=== PATIENT | male | born 1940 | race Caucasian/White ===

== ENCOUNTER → 2016-10-28 | Outpatient (CLI) | payer MEDICARE, OTHER ==
[2016-10-20 09:37] VITALS: BP 153/73
[2016-10-28 12:05] LABS: HEMATOCRIT 28.3 % (39.0-53.0); HEMOGLOBIN 9.6 g/dL (13.0-17.5)
[2016-10-28 12:19] LABS: ALBUMIN 3.3 g/dL (3.4-5.0); CALCIUM 8.5 mg/dL (8.5-10.1); CREATININE 4.7 mg/dL (0.7-1.3); GFR 12.1; PHOSPHORUS 5.1 mg/dL (2.6-4.7); POTASSIUM 4.8 mmol/L (3.5-5.1)
[2016-10-29 17:34] LABS: MICRO CREAT RATIO 102.7 mg/g creat (0.0-30.0)
== END | disposition home or self-care (01) ==
LOC: LAB 11:37
PROVIDERS: ATTEND Internal Medicine Nephrology
DX: I12.9 Hypertensive chronic kidney disease with stage 1 through stage 4 chronic kidney disease, or unspecified chronic kidney disease (principal); N18.4 Chronic kidney disease, stage 4 (severe); E11.22 Type 2 diabetes mellitus with diabetic chronic kidney disease; E11.21 Type 2 diabetes mellitus with diabetic nephropathy; E21.1 Secondary hyperparathyroidism, not elsewhere classified; D63.1 Anemia in chronic kidney disease; I71.4 Abdominal aortic aneurysm, without rupture; R53.83 Other fatigue; Z68.25 Body mass index [BMI] 25.0-25.9, adult
CPT/HCPCS: 36415; 80069; 82043; 82306; 82570; 82728; 83540; 83550; 85014; 85018; 86704; 87340

== ENCOUNTER 2020-10-06 04:23 | Emergency (ER) | payer MEDICARE, OTHER ==
[~2020-10-06] VITALS: Ht 180.3 cm; Wt 75.0 kg
--- NOTE | 2020-10-06 04:31 | PHYS DOC ---
Past History Past Medical History: Anemia, Angina, Arthritis, Arrhythmia, Bronchitis, CAD, CHF, COPD, Diabetes, Heart Disease, Hypertension, Renal Failure, Vascular Disease Past Surgical History: Angioplasty, Other Past Surgical History Transarterial abdomen aortic stenting of aneurysm- Lt arm AV graph Smoking: Cigarettes General Adult HPI: HPI: ".. I supposed to be in dialysis this morning... I did not think you can make it and I got this chest pain... So I came here..".." Actually the pain started at mid night.. but I tried to go back to sleep.. It was 10/10..but it calmed down now.. it about 10.. 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 Pain let up a little bit last night so he then went back to bed. However on the way to dialysis his pain came back and rated 10 out of 10. Patient locates pain in central left chest. Nothing he did seem to make it better. There did seem to be a pleuritic component. Patient states he been compliant with his medications. Patient does still smoke. Patient has somewhat extensive medical history with diabetes, hypertension, COPD, anemia of chronic disease, arthritis, MIs, four coronary artery stents, and end-stage renal disease the past 3 years with dialysis on Wednesdays and Saturdays. Patient states he developed renal failure after treatment of abdomen aortic aneurysm at approximately 3 years ago. Patient aortic aneurysm was treated by arterial placement of aortic stent. Patient states dye used to aid in placement of the aortic stent and his diabetes caused renal failure. Patient is occasionally O2 dependent due to fluid overload and intermittent episodes of bronchitis. Patient still follows locally with Dr. Epps. Has follow-up with Dr. Hdz nephrology in the past, but now currently following with Dr. Qureshi. Patient completed his last Covid vaccination-Moderna on July 15,. No recent travel. No significant ill contacts. No history of recent trauma. No history of immunosuppression. Review of Systems: Review of Systems: Constitutional: Denies fever or chills Eyes: Denies change in visual acuity HENT: Denies nasal congestion or sore throat Respiratory: Complains of cough and shortness of breath Cardiovascular: Complains of chest pain GI: Denies abdominal pain, nausea, vomiting, bloody stools or diarrhea : Denies dysuria Musculoskeletal: Denies back pain or joint pain Integument: Denies rash Neurologic: Denies headache, focal weakness or sensory changes Endocrine: Denies polyuria or polydipsia Lymphatic: Denies swollen glands Psychiatric: Denies depression or anxiety Family History: Family History: Noncontributory to presentation Current Medications: Current Meds: See nursing for home meds Allergies: Allergies: Allergies Coded Allergies Type Severity Reaction Last Updated Verified No Known Drug Allergies 12/24/14 No Physical Exam: PE: Constitutional: in acute distress, chronically ill in appearance. [] HENT: Normocephalic, atraumatic, bilateral external ears normal, oropharynx moist, no oral exudates, nose normal. [] Eyes: PERRLA, EOMI, conjunctiva normal, no discharge. [] Neck: Normal range of motion, no tenderness, supple, no stridor. [] Cardiovascular: Irregular heart rate and irregular regular rhythm, PMI to left, monitor shows a sinus rhythm with frequent atrial premature complexes and a bundle branch block. With occasional PVCs. Lungs & Thorax: Bilateral breath sounds equal at apex with scattered wheezes and bibasilar crackles on auscultation [] Abdomen: Bowel sounds normal, soft, no tenderness, no masses, no pulsatile masses. Old surgical scar Skin: Warm, dry, no erythema, no rash. Poor turgor Back: No tenderness, no CVA tenderness. [] Mild kyphosis Extremities: No tenderness, no cyanosis, no clubbing, ROM intact, no edema. Arthritic changes. Left AC-AV graft has good thrill Neurologic: Alert and oriented X 3, moves extremities on request, has distal sensory,, no new focal deficits noted per patient and Psychologic: Affect anxious , judgement normal, mood normal. At times argumentative. EKG: EKG: My interpretation EKG shows a sinus rhythm 75 with atrial premature complexes, left axis deviation, bundle branch block, 0431 Hrs. Radiology/Procedures: Radiology/Procedures: [][address] [address] IMAGING REPORT Signed PATIENT: RONNIE BRIGGS AACCOUNT: [id number] : 1940 LOCATION: ER AGE: 80 SEX: M EXAM STATUS: REG ER ORD. PHYSICIAN: LUKE DUBOSE MD REASON: dyspnea PROCEDURE: PORTABLE CHEST 1V EXAMINATION: XR CHEST 1V CLINICAL HISTORY: Dyspnea EXAM DATE/TIME: 10/06/2020 4:43 AM COMPARISON: None FINDINGS: Lines, Tubes, and Devices: None. Cardiomediastinal Silhouette: Normal heart size. Aortic atherosclerotic calcification. Lungs and Pleura: Questionable subtle patchy groundglass opacities in the bilateral lungs. No evidence of pleural effusion, however, the bilateral costophrenic angles are excluded from the image. No pneumothorax. Bones and Soft Tissues: Degenerative changes of the thoracic spine. IMPRESSION: No evidence of acute cardiopulmonary abnormality. Electronically signed by: Sidney Shipley DO (10/06/2020 6:07 AM) [facility] DICTATED AND SIGNED BY: SIDNEY SHIPLEY DO DATE: 10/06/20 06 CC: LUKE DUBOSE MD; SATURNINO EPPS MD ~MTH0 0 Heart Score: C/O Chest Pain: Yes HEART Score for Chest Pain: HEART Score for Chest Pain Response (Comments) Value History Moderately Suspicious 1 ECG Nonspecific Repolarizatio 1 Age > 65 2 Risk Factors 1 or 2 Risk Factors 1 Troponin < Normal Limit 0 Total 5 Risk Factors: Risk Factors: DM, Current or recent (<one month) smoker, HTN, HLP, family history of CAD, obesity. Risk Scores: Score 0 - 3: 2.5% MACE over next 6 weeks - Discharge Home Score 4 - 6: 20.3% MACE over next 6 weeks - Admit for Clinical Observation Score 7 - 10: 72.7% MACE over next 6 weeks - Early Invasive Strategies Course & Med Decision Making: Course & Med Decision Making Pertinent Labs and Imaging studies reviewed. (See chart for details) Discussed presentation, testing and tx plan with Dr Ansari-will accept pt at [facility]- for Nephrology and Cardiology consult.s Pt. pain gradually improved with small increments of morphine. Impression: 1. Chest pain 2. Dyspnea-pulmonary edema-fluid overload 3. COPD/emphysema 4. Coronary artery disease-MIs status post 4 coronary artery stents 5. End-stage renal ychmpig-[id number]-ih Tuesdays and Saturdays x3 yrs 6. Diabetes glu 139 7. Anemia of chronic disease hemoglobin 11.4 with macrocytic indices 104 8. Bronchitis 9. Hyperkalemia 5.2-critical 10. Leukocytosis 11.6 11. Degenerative joint disease/arthritis 12. History of transverse arterial abdomen aortic repair by stenting-[facility] approximately 3 years ago 14. Malnutrition [] Dragon Disclaimer: Dragon Disclaimer: This electronic medical record was generated, in whole or in part, using a voice recognition dictation system. Departure Departure: Referrals: SATURNINO EPPS MD (PCP) Anaih Disclaimer This chart was dictated in whole or in part using Voice Recognition software in a busy, high-work load, and often noisy Emergency Department environment. It may contain unintended and wholly unrecognized errors or omissions. Dragon Disclaimer This chart was dictated in whole or in part using Voice Recognition software in a busy, high-work load, and often noisy Emergency Department environment. It may contain unintended and wholly unrecognized errors or omissions. LUKE DUBOSE MD Oct 06, 2020 04:31
[2020-10-06] MEDS ORDERED: ANTI-COAG MONITOR BY PHARMACY. MC PRN (04:45)
[2020-10-06] MEDS ORDERED: HEPARIN 25,000UTS/250ML PREMIX 250 ML IV PRN (04:45)
--- NOTE | 2020-10-06 04:45 | EKG ---
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
[2020-10-06] MEDS ORDERED: ASPIRIN 325 MG TABLET PO ONE (05:00)
[2020-10-06] MEDS ORDERED: HEPARIN for IV BOLUS 10,000 UNIT/10 ML VIAL. IV ONE (05:00)
[2020-10-06] MEDS ORDERED: MORPHINE SULFATE 2 MG/ML DISP.SYRIN. IV ONE (05:00)
[2020-10-06 05:20] LABS: HEMOGLOBIN ISTAT 11.9 gm/dL; POTASSIUM ISTAT 5.2 mmol/L (3.5-5.0)
[2020-10-06 05:21] LABS: BASO # 0.1 x10^3/uL (0.0-0.2); BASO % 1 % (0-3); EOS # 0.2 x10^3/uL (0.0-0.7); EOS % 2 % (0-3); HEMATOCRIT 34.1 % (39.0-53.0); HEMOGLOBIN 11.4 g/dL (13.0-17.5); LYMPH # 1.6 x10^3/uL (1.0-4.8); LYMPH % 14 % (24-48); MEAN CORPUSCULAR HEMOGLOBIN 35 pg (25-35); MEAN CORPUSCULAR HGB CONC 33 g/dL (31-37); MEAN CORPUSCULAR VOLUME 104 fL (79-100); MONO # 1.4 x10^3/uL (0.0-1.1); MONO % 13 % (0-9); NEUT # 8.2 x10^3uL (1.8-7.7); NEUT % 71 % (31-73); PLATELET COUNT 140 x10^3/uL (140-400); RED BLOOD COUNT 3.28 x10^6/uL (4.30-5.70); RED CELL DISTRIBUTION WIDTH 14.5 % (11.5-14.5); WHITE BLOOD COUNT 11.6 x10^3/uL (4.0-11.0)
[2020-10-06] MEDS ORDERED: CIPROFLOXACIN HCL 500 MG TABLET PO ONE (06:00)
--- NOTE | 2020-10-06 06:10 | RAD ---
EXAMINATION: XR CHEST 1V CLINICAL HISTORY: Dyspnea EXAM DATE/TIME: 10/06/2020 4:43 AM COMPARISON: None FINDINGS: Lines, Tubes, and Devices: None. Cardiomediastinal Silhouette: Normal heart size. Aortic atherosclerotic calcification. Lungs and Pleura: Questionable subtle patchy groundglass opacities in the bilateral lungs. No evidenc e of pleural effusion, however, the bilateral costophrenic angles are excluded from the image. No pne umothorax. Bones and Soft Tissues: Degenerative changes of the thoracic spine. IMPRESSION: No evidence of acute cardiopulmonary abnormality. Electronically signed by: Sidney Sifuentes DO (10/06/2020 6:07 AM) BULL
[2020-10-06] MEDS ORDERED: NITROGLYCERIN OINT 1 GM PACKET. TP ONE (06:15)
[2020-10-06 06:58] VITALS: BP 94/56
[2020-10-06 10:00] LABS: ALBUMIN 3.5 g/dL (3.4-5.0); TOTAL BILIRUBIN 0.3 mg/dL (0.2-1.0); TOTAL PROTEIN 7.1 g/dL (6.4-8.2)
[2020-10-06 10:01] LABS: DIRECT BILIRUBIN 0.1 mg/dL (0.0-0.2); MAGNESIUM 2.5 mg/dL (1.8-2.4)
[2020-10-06 16:54] LABS: THYROID STIM HORMONE (TSH) 0.592 uIU/mL (0.358-3.740)
== END 2020-10-06 07:30 | disposition short-term general hospital (02) ==
LOC: ER 04:23
DX: R07.89 Other chest pain (principal); I13.2 Hypertensive heart and chronic kidney disease with heart failure and with stage 5 chronic kidney disease, or end stage renal disease; E11.22 Type 2 diabetes mellitus with diabetic chronic kidney disease; N18.6 End stage renal disease; I50.1 Left ventricular failure, unspecified; I25.10 Atherosclerotic heart disease of native coronary artery without angina pectoris; D63.1 Anemia in chronic kidney disease; J44.9 Chronic obstructive pulmonary disease, unspecified; E87.5 Hyperkalemia; D72.829 Elevated white blood cell count, unspecified; M19.90 Unspecified osteoarthritis, unspecified site; E46 Unspecified protein-calorie malnutrition; F17.210 Nicotine dependence, cigarettes, uncomplicated; Z99.2 Dependence on renal dialysis; Z68.23 Body mass index [BMI] 23.0-23.9, adult; Z86.2 Personal history of diseases of the blood and blood-forming organs and certain disorders involving the immune mechanism
CPT/HCPCS: 36415; 71045; 80047; 80061; 80076; 82550; 83690; 83735; 83880; 84443; 84484; 85025; 93005; 96374; 96375; 99285; J1644; J2270

== ENCOUNTER 2021-02-28 19:32 | Emergency (ER) | payer MEDICARE, OTHER ==
[~2021-02-28] VITALS: Ht 177.8 cm; Wt 71.0 kg
[2021-02-28 19:40] VITALS: BP 131/61
[2021-02-28] MEDS ORDERED: ACETAMINOPHEN 500 MG TABLET PO ONE (19:45)
--- NOTE | 2021-02-28 19:53 | PHYS DOC ---
Past History Past Medical History: Anemia, Angina, Arthritis, Arrhythmia, Bronchitis, CAD, CHF, COPD, Diabetes, Heart Disease, Hypertension, Renal Failure, Vascular Disease Past Surgical History: Angioplasty, Other Additional Past Surgical Histo: bladder surgery, skin ca,cardiac stents Smoking: Cigarettes Alcohol Use: None Adult General Chief Complaint Chief Complaint: MECHANICAL FALL HPI HPI Patient is an 81-year-old male, with a past medical history significant for CAD, A. fib on Eliquis who presents with family for chief complaint of fall. States he was outside about an hour before coming in to the emergency department, tripped and fell on his back. States he was unable to get up on his own as he usually walks with a cane. Denies any loss of consciousness, changes in vision, headache, chest pain, shortness of breath, abdominal pain, nausea, vomiting. Denies any new numbness/weakness/tingling. States he is at baseline per sitting, standing and walking. Complaining about pain in the left hand and forearm, 5 out of 10 with no radiation, and right hip and leg 5 out of 10 with no radiation. Review of Systems Review of Systems Review of systems otherwise unremarkable except noted in HPI Allergies Allergies Allergies Coded Allergies Type Severity Reaction Last Updated Verified No Known Drug Allergies 10/06/20 No Physical Exam Physical Exam Constitutional: Well developed, well nourished, no acute distress, non-toxic appearance. [] HENT: Normocephalic, atraumatic, bilateral external ears normal, oropharynx moist, no oral exudates, nose normal. [] Eyes: conjunctiva normal, no discharge. [] Neck: Normal range of motion, no tenderness, supple, no stridor. [] Cardiovascular:Heart rate regular rhythm, no murmur [] Lungs & Thorax: Bilateral breath sounds clear to auscultation [] Abdomen: soft, no tenderness, no masses, no pulsatile masses. [] Skin: Warm, dry, no erythema, no rash. [] Back: No tenderness, no CVA tenderness. [] Extremities: Mild tenderness on the posterior aspect of the left hand in between the second and third finger PIP, third and fourth fingers with some slight deviation to the ulnar aspect, neurovascular exam intact. Mild tenderness on palpation of the right hip and femur with no obvious deformities, neurovascular exam intact Neurologic: Alert and oriented X 3, normal motor function, normal sensory function, cranial nerves intact, baseline sitting, standing or walking, no focal deficits noted. [] Psychologic: Affect normal, judgement normal, mood normal. [] EKG EKG [] Radiology/Procedures Radiology/Procedures [] Heart Score C/O Chest Pain: No Risk Factors: Risk Factors: DM, Current or recent (<one month) smoker, HTN, HLP, family history of CAD, obesity. Risk Scores: Risk Factors: DM, Current or recent (<one month) smoker, HTN, HLP, family history of CAD, obesity. Course & Med Decision Making Course & Med Decision Making Patient is an 81-year-old male on [email or web address] who presents after a fall at home Vital signs not concerning. Physical exam noted above. Patient given pain medicine and ice pack All imaging unremarkable outside of the left hand which has an obliquely oriented fracture to the third and fourth metacarpal mildly displaced Nerve block performed with 1% lidocaine, injecting 3 mils in between third and fourth metacarpal. Patient tolerated well. Reduced. A radial gutter and ulnar gutter splint placed. Discussed all findings with family. Gave symptom management recommendations for home. Advised to keep the splint on until cleared by orthopedic surgery. Given contact information for [facility] orthopedic group. Advised to call both primary care physician and orthopedic surgeons first thing in the morning to set up an immediate follow-up visit for reevaluation and discussions of further evaluation and treatment. Gave return precautions to the ED. Patient grateful, verbalized understanding and agreed with plan of discharge. Dragon Disclaimer Dragon Disclaimer This electronic medical record was generated, in whole or in part, using a voice recognition dictation system. Departure Departure: Impression: Primary Impression: Metacarpal bone fracture Disposition: 01 HOME / SELF CARE / HOMELESS Condition: IMPROVED Referrals: SATURNINO EPPS MD (PCP) Patient Instructions: Hand Fracture, Metacarpals Additional Instructions: Thank you for coming into the emergency department tonight and allowing us to take care of you. Please read the attached information carefully to go back over some of the things we discussed. Please use your pain medication as prescribed and when needed. Please use ice as well. Please be sure to leave your splint on until you are seen and cleared by the orthopedic surgeons. Please call your primary care physician first thing in the morning to update on your ED visit and set up a follow-up as soon as possible. Please call the [facility] orthopedic group first thing in the morning at [phone] to update on your visit and set up a follow-up appointment as soon as possible for reevaluation and discussions on further evaluation and treatment. Scripts Hydrocodone Bit/Acetaminophen (HYDROCODONE-APAP 5-325 ) 1 Each Tablet 1 TAB PO TID PRN for fracture for 3 Days, #9 TAB 0 Refills Prov: CATHY STILL MD 02/28/21 CATHY STILL MD Feb 28, 2021 19:53
--- NOTE | 2021-02-28 21:04 | RAD ---
Exam: Pelvis with bilateral hips INDICATION: Fall TECHNIQUE: Frontal view of the pelvis with frontal and frog-leg lateral views of the right and left h ip Comparisons: None FINDINGS: Diffuse osteopenia. Moderate osteoarthritic change at the hip joints bilaterally. No acute fracture. Joint spaces are well-maintained. IMPRESSION: Diffuse osteopenia without underlying osseous abnormality identified. If the patient is acutely unabl e to bear weight recommend cross-sectional imaging to evaluate for occult fracture. Electronically signed by: Ashwin Ellison MD (02/28/2021 9:01 PM) DOMINIC
--- NOTE | 2021-02-28 21:05 | RAD ---
Exam: Left hand 2 views INDICATION: Fall TECHNIQUE: Frontal and lateral views of the left hand Comparisons: None FINDINGS: There is no obliquely oriented fracture through the third and fourth metacarpals which are mildly dis placed. Diffuse osteopenia. Soft tissue unremarkable. Joint spaces are well-maintained. IMPRESSION: Obliquely oriented fracture to the third and fourth metacarpals, mildly displaced. Electronically signed by: Ashwin Ellison MD (02/28/2021 9:02 PM) DOMINIC
--- NOTE | 2021-02-28 21:05 | RAD ---
Exam: Left forearm 2 views INDICATION: Fall TECHNIQUE: Frontal and lateral views left forearm Comparisons: None FINDINGS: Bone mineralization is normal. No acute or healed fractures. Soft tissues are unremarkable. Joint spa brayden are well-maintained. IMPRESSION: No acute osseous abnormality Electronically signed by: Ashwin Ellison MD (02/28/2021 9:02 PM) DOMIINC
--- NOTE | 2021-02-28 21:06 | RAD ---
Exam: Right femur 2 views INDICATION: Fall TECHNIQUE: Frontal and lateral views of the right femur Comparisons: None FINDINGS: Diffuse osteopenia. No acute or healed fractures. Joint spaces are well-maintained. Soft tissues are unremarkable. IMPRESSION: No acute osseous abnormality identified. Electronically signed by: Ashwin Ellison MD (02/28/2021 9:03 PM) DOMINIC
--- NOTE | 2021-02-28 21:14 | RAD ---
CT head without contrast: Reason for examination: Fell. On Eliquis. Helical images were obtained through the brain with no contrast administered. Ventricular systems are symmetric and not dilated considering the patient's advanced age and generali zed cerebral atrophy. No midline shift is seen. There is no evidence of intracranial hemorrhage, acut e infarct, mass or edema. There is some mucosal disease in the maxillary antra bilaterally. Mastoid a ir cells are clear. No acute skull abnormality is seen. IMPRESSION: Cerebral atrophy but no acute intracranial abnormality evident. CT cervical spine without contrast: Helical images were obtained through the cervical spine from the skull base through the thoracic apic es with no contrast administered. Reconstruction was performed in sagittal and coronal planes. The C1 ring appears to be intact. The odontoid process is intact and normally centered between the la teral masses of C1. The cervical vertebral bodies are normally aligned anteriorly and posteriorly. No acute fracture or subluxation is seen. Posterior elements are intact. There are some degenerative ch anges in the cervical spine and there is moderate degenerative disc disease at the C6-7 disc level. T he remaining intervertebral discs are fairly well-maintained. There is not appear to be significant s kimberly stenosis evident. Prevertebral soft tissues are normal. IMPRESSION: No acute abnormality evident in the cervical spine. Exposure: One or more of the following individualized dose reduction techniques were utilized for thi s examination: 1. Automated exposure control 2. Adjustment of the mA and/or kV according to patient size 3. Use of iterative reconstruction technique. Electronically signed by: Hyacinth Diaz MD (02/28/2021 9:12 PM) JOSE
[2021-02-28] MEDS ORDERED: HYDR-2155 PO (21:23)
[2021-02-28] MEDS ORDERED: oxyCODONE/APAP 5/325 1 TAB TABLET PO ONE (21:30)
[2021-02-28] MEDS ORDERED: LIDOCAINE 1% PF 30 ML VIAL. INJ ONE (21:30)
== END 2021-02-28 22:10 | disposition home or self-care (01) ==
LOC: ER 19:32
DX: S62.303A Unspecified fracture of third metacarpal bone, left hand, initial encounter for closed fracture (principal); S62.305A Unspecified fracture of fourth metacarpal bone, left hand, initial encounter for closed fracture; M19.90 Unspecified osteoarthritis, unspecified site; I25.10 Atherosclerotic heart disease of native coronary artery without angina pectoris; I13.0 Hypertensive heart and chronic kidney disease with heart failure and stage 1 through stage 4 chronic kidney disease, or unspecified chronic kidney disease; E11.22 Type 2 diabetes mellitus with diabetic chronic kidney disease; N18.9 Chronic kidney disease, unspecified; I50.9 Heart failure, unspecified; F17.210 Nicotine dependence, cigarettes, uncomplicated; I48.91 Unspecified atrial fibrillation; J44.9 Chronic obstructive pulmonary disease, unspecified; W01.0XXA Fall on same level from slipping, tripping and stumbling without subsequent striking against object, initial encounter; Y93.89 Activity, other specified; Y92.89 Other specified places as the place of occurrence of the external cause; Y99.8 Other external cause status
CPT/HCPCS: 26605; 70450; 72125; 73090; 73120; 73521; 73552; 96374; 96376; 99284; J3010

== ENCOUNTER → 2021-04-12 | Outpatient (CLI) | payer MEDICARE, OTHER ==
[~2021-04-12] MED LIST: HYDR-2155 PO
--- NOTE | 2021-04-12 17:30 | RAD ---
EXAM: LEFT HAND 3 VIEWS. HISTORY: Fracture fixation follow-up. COMPARISON: 02/28/2021. FINDINGS: Fractures of the third and fourth metacarpals remain in near-anatomic alignment. The third metacarpal fracture is fixed by 2 screws in the fourth fixed by 2 pins. No solid bridging callus is y et detectable. Osteopenia is severe. A nondisplaced fracture suspected along the distal pole of the scaphoid on the frontal projection. First metacarpophalangeal and diffuse distal interphalangeal osteoarthritis are mild. Atherosclerotic calcifications are noted. IMPRESSION: 1. Suspect a nondisplaced fracture of the distal pole of the scaphoid. A wrist examination could furt her evaluate if the diagnosis remains unclear. 2. Third and fourth metacarpal fractures status post internal fixation in expected alignment. Electronically signed by: Kiarra Borges MD (04/12/2021 5:28 PM) [id number]
== END ==
LOC: RAD 13:45
PROVIDERS: ATTEND Physician Assistant
DX: M19.042 Primary osteoarthritis, left hand (principal); M85.88 Other specified disorders of bone density and structure, other site; I70.90 Unspecified atherosclerosis; Z98.890 Other specified postprocedural states
CPT/HCPCS: 73130

== ENCOUNTER 2021-04-28 14:25 | Emergency (ER) | payer MEDICARE, OTHER ==
[~2021-04-28] VITALS: Ht 180.3 cm; Wt 69.0 kg
--- NOTE | 2021-04-28 16:02 | RAD ---
EXAM: Chest, single view. HISTORY: Hypoxia. Covid 19. COMPARISON: 10/06/2020 FINDINGS: A frontal view of the chest is obtained. There is partially consolidated right upper and le ft lower lobe infiltrate superimposed on multifocal interstitial infiltrate and suspected chronic int erstitial changes. There is no pleural effusion or pneumothorax. The heart is normal in size. IMPRESSION: Multifocal partially consolidated interstitial infiltrate. Follow-up to confirm resolutio n. Electronically signed by: La Nena Malin MD (04/28/2021 4:00 PM) [id number]
[2021-04-28] MEDS ORDERED: IV NORMAL SALINE 50ML 50 ML ONE (16:58)
[2021-04-28] MEDS ORDERED: IV NORMAL SALINE 250ML 250 ML ONE (16:58)
[2021-04-28] MEDS ORDERED: AZITHROMYCIN 500 MG VIAL. IV ONE (16:58)
[2021-04-28] MEDS ORDERED: cefTRIAXone SODIUM 1 GM VIAL ONE (16:58)
[2021-04-28 17:07] VITALS: BP 108/45
[2021-04-28] MEDS ORDERED: AZITHROMYCIN 500 MG in IV NORMAL SALINE 250ML 250 ML IV ONE (17:15)
[2021-04-28 17:18] LABS: BASO % 0 % (0-3); EOS % 0 % (0-3); HEMATOCRIT 33.4 % (39.0-53.0); HEMOGLOBIN 10.8 g/dL (13.0-17.5); LYMPH # 0.9 x10^3/uL (1.0-4.8); LYMPH % 18 % (24-48); MEAN CORPUSCULAR HEMOGLOBIN 34 pg (25-35); MEAN CORPUSCULAR HGB CONC 32 g/dL (31-37); MEAN CORPUSCULAR VOLUME 105 fL (79-100); MONO % 19 % (0-9); NEUT # 3.1 x10^3uL (1.8-7.7); NEUT % 62 % (31-73); PLATELET COUNT 94 x10^3/uL (140-400); RED BLOOD COUNT 3.17 x10^6/uL (4.30-5.70); RED CELL DISTRIBUTION WIDTH 14.9 % (11.5-14.5); WHITE BLOOD COUNT 4.9 x10^3/uL (4.0-11.0)
--- NOTE | 2021-04-28 17:20 | EKG ---
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
[2021-04-28 17:30] LABS: CALCIUM 8.6 mg/dL (8.5-10.1); CREATININE 9.6 mg/dL (0.7-1.3); GFR 5.2; POTASSIUM 3.2 mmol/L (3.5-5.1)
[2021-04-28 17:36] LABS: ALBUMIN 2.8 g/dL (3.4-5.0); ALBUMIN/GLOBULIN RATIO 0.8 (1.0-1.7); MAGNESIUM 2.3 mg/dL (1.8-2.4); PHOSPHORUS 5.9 mg/dL (2.6-4.7); TOTAL BILIRUBIN 0.5 mg/dL (0.2-1.0); TOTAL PROTEIN 6.3 g/dL (6.4-8.2)
[2021-04-28] MEDS ORDERED: AZIT250T6 PO (18:21)
--- NOTE | 2021-04-28 18:21 | PHYS DOC ---
Past History Past Medical History: Anemia, Angina, Arthritis, Arrhythmia, Bronchitis, CAD, CHF, COPD, Diabetes, Heart Disease, Hypertension, Renal Failure, Vascular Disease (PAUL DENNISON APRN) Past Surgical History: Other Additional Past Surgical Histo: bladder surgery, skin ca,cardiac stents; dialysis shunt left arm (PAUL DENNISON APRN) Smoking: Cigarettes Alcohol Use: None (PAUL DENNISON APRN) Adult General Chief Complaint Chief Complaint: SHORTNESS OF BREATH HPI HPI Patient is a 81-year-old male who presents to the emergency department complaining of having O2 sat at home of 76%. Patient states his called his primary care physician Dr. Epps who wanted him to come directly to [facility] emergency department for evaluation. Patient reports this past Monday he was diagnosed with the COVID-19 virus. Patient reports he is a hemodialysis patient. Patient denies shortness of breath, chest pain, chest discomfort, cough, chest or nasal congestion. Patient reports he is on 2.5 to 3 L of O2 at all times at home. Patient reports he missed his Monday hemodialysis, has an appointment tomorrow morning for hemodialysis. Patient denies other physical complaints or physical concerns. (PAUL DENNISON APRN) Review of Systems Review of Systems 14 body systems of review of systems have been reviewed. See HPI for pertinent positives and negative responses, otherwise all other systems are negative, nonpertinent or noncontributory. Constitutional: Negative except as outlined in HPI above. Skin: Negative except as outlined in HPI above. Eyes: Negative except as outlined in HPI above. HENT: Negative except as outlined in HPI above. Respiratory: Negative except as outlined in HPI above. Cardiovascular: Negative except as outlined in HPI above. GI: Negative except as outlined in HPI above. : Negative except as outlined in HPI above. Musculoskeletal: Negative except as outlined in HPI above. Integument: Negative except as outlined in HPI above. Neurologic: Negative except as outlined in HPI above. Endocrine: Negative except as outlined in HPI above. Lymphatic: Negative except as outlined in HPI above. Psychiatric: Negative except as outlined in HPI above. (PAUL DENNISON APRN) Current Medications Current Medications Current Medications Medications (Trade) Dose Ordered Sig/Devora Start Time Stop Time Status Last Admin Dose Admin Azithromycin (Zithromax) 500 mg STK-MED ONCE 04/28/21 16:58 04/28/21 16:58 DC Azithromycin 500 mg/Sodium Chloride 250 ml @ 250 mls/hr 1X ONCE 04/28/21 17:15 04/28/21 18:14 DC 04/28/21 17:05 250 MLS/HR Ceftriaxone Sodium 1 gm/ Sodium Chloride 50 ml @ 100 mls/hr 1X ONCE 04/28/21 16:45 04/28/21 17:14 DC Ceftriaxone Sodium (Rocephin) 1 gm STK-MED ONCE 04/28/21 16:58 04/28/21 16:58 DC Sodium Chloride 50 ml @ As Directed STK-MED ONCE 04/28/21 16:58 04/28/21 16:58 DC (PAUL DENNISON APRN) Allergies Allergies Allergies Coded Allergies Type Severity Reaction Last Updated Verified No Known Drug Allergies 04/28/21 No (PAUL DENNISON APRN) Physical Exam Physical Exam Constitutional: Well developed, well nourished, no acute distress, non-toxic appearance. 81-year-old male in no apparent distress. HENT: Normocephalic, atraumatic. Eyes: Conjunctiva normal, no discharge. Neck: Normal range of motion, no stridor. Cardiovascular: No cyanosis appreciated, distal cap refill less than 2 seconds. End diastolic murmur appreciated per auscultation. Lungs & Thorax: Patient is in no respiratory distress, no audible adventitious lung sounds appreciated. Lung sounds diminished bilateral bases, expiratory rhonchi bilateral upper lobes. Abdomen: Nontender, no abnormalities noted. Skin: Warm, dry, no erythema, no rash. Back: No tenderness, no deformities. Extremities: No tenderness, no cyanosis, no clubbing, ROM intact, no edema. Hemodialysis fistula left upper extremity with positive bruit and thrill. Neurologic: Alert and oriented X 3, normal motor function, normal sensory function, no focal deficits noted. Psychologic: Affect normal, judgement normal, mood normal. (PAUL DENNISON APRN) Current Patient Data Vital Signs Vital Signs Date Time Temp Pulse Resp B/P (MAP) Pulse Ox O2 Delivery O2 Flow Rate FiO2 04/28/21 17:07 65 20 108/45 (66) 96 Nasal Cannula 3.5 04/28/21 14:40 98.6 Lab Results Laboratory Tests Test 04/28/21 16:45 White Blood Count 4.9 x10^3/uL (4.0-11.0) Red Blood Count 3.17 x10^6/uL (4.30-5.70) L Hemoglobin 10.8 g/dL (13.0-17.5) L Hematocrit 33.4 % (39.0-53.0) L Mean Corpuscular Volume 105 fL (79-100) H Mean Corpuscular Hemoglobin 34 pg (25-35) Mean Corpuscular Hemoglobin Concent 32 g/dL (31-37) Red Cell Distribution Width 14.9 % (11.5-14.5) H Platelet Count 94 x10^3/uL (140-400) L Neutrophils (%) (Auto) 62 % (31-73) Lymphocytes (%) (Auto) 18 % (24-48) L Monocytes (%) (Auto) 19 % (0-9) H Eosinophils (%) (Auto) 0 % (0-3) Basophils (%) (Auto) 0 % (0-3) Neutrophils # (Auto) 3.1 x10^3uL (1.8-7.7) Lymphocytes # (Auto) 0.9 x10^3/uL (1.0-4.8) L Monocytes # (Auto) 1.0 x10^3/uL (0.0-1.1) Eosinophils # (Auto) 0.0 x10^3/uL (0.0-0.7) Basophils # (Auto) 0.0 x10^3/uL (0.0-0.2) Platelet Estimate Pending Sodium Level 143 mmol/L (136-145) Potassium Level 3.2 mmol/L (3.5-5.1) L Chloride Level 98 mmol/L (98-107) Carbon Dioxide Level 32 mmol/L (21-32) Anion Gap 13 (6-14) Blood Urea Nitrogen 79 mg/dL (8-26) H Creatinine 9.6 mg/dL (0.7-1.3) H Estimated GFR (Cockcroft-Gault) 5.2 BUN/Creatinine Ratio 8 (6-20) Glucose Level 153 mg/dL (70-99) H Lactic Acid Level 1.1 mmol/L (0.4-2.0) Calcium Level 8.6 mg/dL (8.5-10.1) Phosphorus Level 5.9 mg/dL (2.6-4.7) H Magnesium Level 2.3 mg/dL (1.8-2.4) Total Bilirubin 0.5 mg/dL (0.2-1.0) Aspartate Amino Transferase (AST) 59 U/L (15-37) H Alanine Aminotransferase (ALT) 40 U/L (16-63) Alkaline Phosphatase 65 U/L (46-116) Total Protein 6.3 g/dL (6.4-8.2) L Albumin 2.8 g/dL (3.4-5.0) L Albumin/Globulin Ratio 0.8 (1.0-1.7) L (PAUL DENNISON APRN) EKG EKG EKG performed at 1858 by ED nursing staff shows a atrial fibrillation with a controlled rate 54 bpm, QTc interval 0.458, no acute STEMI, no ACS, no acute ischemia appreciated, EKG interpreted by ED attending physician Dr. Campa. (PAUL DENNISON APRN) Radiology/Procedures Radiology/Procedures REASON: Reported hypoxia at home, COVID-positive PROCEDURE: CHEST AP ONLY EXAM: Chest, single view. HISTORY: Hypoxia. Covid 19. COMPARISON: 10/06/2020 FINDINGS: A frontal view of the chest is obtained. There is partially consolidated right upper and left lower lobe infiltrate superimposed on multifocal interstitial infiltrate and suspected chronic interstitial changes. There is no pleural effusion or pneumothorax. The heart is normal in size. IMPRESSION: Multifocal partially consolidated interstitial infiltrate. Follow-up to confirm resolution. Electronically signed by: La Nena Malin MD (04/28/2021 4:00 PM) [id number] (PAUL DENNISON APRN) Heart Score C/O Chest Pain: No Risk Factors: Risk Factors: DM, Current or recent (<one month) smoker, HTN, HLP, family history of CAD, obesity. Risk Scores: Risk Factors: DM, Current or recent (<one month) smoker, HTN, HLP, family history of CAD, obesity. (PAUL DENNISON APRN) Course & Med Decision Making Course & Med Decision Making Pertinent Labs and Imaging studies reviewed. (See chart for details) 81-year-old male, vital signs reviewed, presents emergency department concerning hypoxic event at home. Patient is not hypoxic upon arrival to the emergency department. Physical examination is unremarkable. Suspicious for either kinked O2 line at home or equipment malfunction. Will order chest x-ray, CBC, CMP, troponin I, EKG. lactic acid level. Patient's chest x-ray concerning for pneumonia, patient does report being in COVID positive, patient's CBC unremarkable, CMP consistent with end-stage renal dialysis patient, EKG unremarkable, lactic acid level within normal limits. Discussed case with ED attending physician Dr. Campa who agrees with starting patient on 1 g Rocephin, 500 mg IV Zithromax, discharge patient to home for outpatient trial of pneumonia treatment as patient does require hemodialysis tomorrow morning. Discussed findings and treatment planning with patient, patient gave verbal understanding of and is amenable to ED planning. Patient does remain nontoxic in appearance, in no respiratory distress, is not hypoxic on 2.5 L of O2 per nasal cannula in the ED. Patient does not complain of chest pain or shortness of breath. Patient has no chief complaint other than his O2 sat was read low at home. Discussed with patient to examine O2 connections and equipment connections at home. Discussed with the patient all findings and diagnostic testing as well as the need to follow-up with their primary care provider for further evaluation and treatment or return to the ED if any new or worsening symptoms. Strict return precautions were also discussed at length, the patient voiced understanding and agreement with the discharge planning. The patient was nontoxic in appearance, in no apparent distress, and hemodynamically stable at the time of disposition. (PAUL DENNISON APRN) Dragon Disclaimer Dragon Disclaimer This electronic medical record was generated, in whole or in part, using a voice recognition dictation system. (PAUL DENNISON APRN) Attending Co-Sign The patient was seen and interviewed as well as examined at the bedside. The chart was reviewed. The case was discussed. Agree with the plan of care. (HUGH CAMPA DO) Departure Departure: Impression: Primary Impression: Pneumonia Additional Impression: COVID-19 Disposition: 01 HOME / SELF CARE / HOMELESS Condition: GOOD Referrals: SATURNINO EPPS MD (PCP) Patient Instructions: Pneumonia, Adult Additional Instructions: You were seen today in the emergency department after a low oxygen saturation event at your home. Your oxygen saturation here in the emergency department has been within normal limits however your chest x-ray did show concerning signs of a pneumonia. Antibiotics were started today in the emergency department. I have prescribed and sent the prescription to the [facility] pharmacy here in [facility]. Please keep your dialysis appointment tomorrow. Return to the emergency department for worsening symptoms or other concerns. Please make an appointment to see Dr. Epps for a follow-up on your pneumonia so that he may consider another x-ray of your chest for reevaluation. Thank you for visiting our Emergency Department. It was a pleasure taking care of you today in the emergency department and we appreciate you trusting us with your care. If any additional problems come up don't hesitate to return to visit us. Please follow up with your primary care provider so they can plan additional care if needed and know about the problem that you had. If symptoms worsen come back to the Emergency Department. Any concerning symptoms that start such as chest pain, shortness of air, weakness or numbness on one side of the body, running high fevers or any other concerning symptoms return to the ER. EMERGENCY DEPARTMENT GENERAL DISCHARGE INSTRUCTIONS Thank you for coming to [facility] (ED) today and trusting us with you care. We trust that you had a positivie experience in our Emergency Department. If you wish to speak to the department management, you may call the director at [phone]. YOUR FOLLOW UP INSTRUCTIONS ARE FOLLOWS: 1. Do you have a private Doctor? If you do not have a private doctor, please ask for a resource list of physicians or clinics that may be able to assist you with follow up care. 2. The Emergency Physician has interpreted your x-rays. The X-Ray specialist will also review them. If there is a change in the findings, you will be notified in 48 hours when at all possible. 3. A lab test or culture has been done, your results will be reviewed and you will be notified if you need a change in treatment. ADDITIONAL INSTRUCTIONS AND INFORMATION: 1. Your care today has been supervised by a physician who is specially trained in emergency care. Many problems require more than one evaluation for a complete diagnosis and treatment. We recommend that you schedule your follow up appointment as recommended to ensure complete treatment of you illness or injury. If you are unable to obtain follow up care and continue to have a problem, or if your condition worsens, we recommend that you return to the ED. 2. We are not able to safely determine your condition over the phone nor are we able to give sound medical advice over the phone. For these safety reasons, if you call for medical advice we will ask you to come to the ED for further evaluation. 3. If you have any questions regarding these discharge instructions please call the ED at [phone]. SAFETY INFORMATION: In the interest of safety, wellness, and injury prevention; we encourage you to wear your sealbelt, if you smoke; quite smoking, and we encourage family to use a protective helmet for bicycling and other sporting events that present an increased risk for head injury. IF YOUR SYMPTOMS WORSEN OR NEW SYMPTOMS DEVELOP, OR YOU HAVE CONCERNS ABOUT YOUR CONDITION; OR IF YOUR CONDITION WORSENS WHILE YOU ARE WAITING FOR YOUR FOLLOW UP APPOINTMENT; EITHER CONTACT YOUR PRIMARY CARE DOCTOR, THE PHYSICIAN WHOSE NAME AND NUMBER YOU WERE GIVEN, OR RETURN TO THE ED IMMEDIATELY. You have been tested for or diagnosed with COVID-19. It is an infection caused by a new type of coronavirus. COVID-19 will cause cold-like or mild flu symptoms in most. It can cause more severe symptoms like problems breathing in some. There is no treatment for COVID-19. The body will clear the infection over time. Self-care will help to ease discomfort. Steps to Take: Self-Care Rest as needed. Healthy habits may help you feel better. Steps include: Choose healthy foods including fruits and vegetables. Drink water throughout the day. Get plenty of sleep each night. If you smoke, try to quit. It may ease breathing. Avoid alcohol. Keep Others Healthy The virus can spread to others. Droplets are released every time you sneeze or cough. The droplets can get into the mouth, nose, or eyes of people near you and lead to infection. To lower the chances of spreading COVID-19 to others: Stay at home until your doctor has said it is safe to leave. If you tested positive this will mean staying isolated until both of the following are true: At least 7 days have passed since the start of illness. You are free of fever for at least 72 hours without the use of medicine. During this time: - Avoid public areas, events, or transportation. Do not return to work or school until your doctor has said it is safe to do so. - Call ahead if you need to go to a medical center. Let them know you may have COVID-19. It will help them guide you where to go. They may also ask you to wear a facemask when you come to the office. - If you call for emergency medical services, let them know you may have COVID- 19. While at home: - Try to avoid close contact with others. Stay about 6 feet away. - If possible, spend most of your time in a separate room from others. - Use a face mask if you will be in close contact with others such as sharing a room or vehicle. - Have someone wipe down common surfaces in the home. Use household bid writer every day on areas like doorknobs, counters, or sinks. - Cough or sneeze into a tissue. Throw the tissue away right after use. If a tissue is not available, cough or sneeze into your elbow. - Wash your hands often. Wash them after sneezing or coughing. Use soap and water and wash for at least 20 seconds. Alcohol based hand rope cleaner can be used if soap and water is not available. - Do not prepare food for others. Avoid sharing personal items like forks, spoons, or toothbrushes. - Avoid close contact with pets while you are sick. There is no evidence of the virus passing to pets. This is a safety step until more is known about this virus. Isolation can be frustrating. Social interaction can help. Keep in touch with friends and family through phone and tech options. You can still interact with others in your home, just keep a safe distance of about 6 feet. Follow-up: Your doctors office will check in with you to see if there are any changes in your health. You may be asked to keep track of symptoms to share with them. They will also let you know when you are clear to be in public again. Problems to Look Out For: Contact your doctor if your recovery is not going as you expect. Get emergency care if you have problems such as: - Trouble breathing - Nonstop chest pain or pressure - Changes in awareness, confusion, or problems waking - Lips or face have bluish color - Worsening of symptoms If you think you have an emergency, call for emergency medical services right away. As taken from [facility] Azithromycin (AZITHROMYCIN TABLET) 250 Mg Tablet 1 PKG PO UD for pneumonia for 5 Days, #6 TAB 0 Refills 2 the first day followed by 1 for days 2-5 Prov: PAUL DENNISON APRN 04/28/21 Problem Qualifiers Primary Impression: Pneumonia Pneumonia type: due to unspecified organism Laterality: bilateral Lung location: unspecified part of lung Qualified Codes: J18.9 - Pneumonia, unspecified organism PAUL DENNISON APRN Apr 28, 2021 18:21 HUGH CAMPA DO Apr 29, 2021 13:33
[2021-04-28 18:28] LABS: BACTERIA,URINE 0 /HPF (0-FEW); BILIRUBIN,URINE NEG (NEG); CLARITY,URINE CLEAR; COLOR,URINE YELLOW; GLUCOSE,URINE NEG (NEG); NITRITE,URINE NEG (NEG); SQUAMOUS EPITHELIAL CELL,UR OCC /LPF; UROBILINOGEN,URINE 0.2 mg/dL (0.2 mg/dL); WBC,URINE 0 /HPF (0-4)
[2021-04-28 22:13] LABS: % LYMPHS 15 % (24-48); % MONOS 12 % (0-10); % SEGS 73 % (35-66)
[2021-04-28 22:14] LABS: ANISOCYTOSIS SLIGHT; PLT ESTIMATE DECREASED (ADEQUATE)
== END 2021-05-01 19:10 | disposition home or self-care (01) ==
LOC: ER 14:25
DX: U07.1 COVID-19 (principal); J18.9 Pneumonia, unspecified organism; M19.90 Unspecified osteoarthritis, unspecified site; I13.0 Hypertensive heart and chronic kidney disease with heart failure and stage 1 through stage 4 chronic kidney disease, or unspecified chronic kidney disease; E11.22 Type 2 diabetes mellitus with diabetic chronic kidney disease; N18.9 Chronic kidney disease, unspecified; I50.9 Heart failure, unspecified; F17.210 Nicotine dependence, cigarettes, uncomplicated
CPT/HCPCS: 36415; 71045; 80053; 81001; 83605; 83735; 84100; 85007; 85025; 87040; 93005; 96365; 96366; 96368; 99285; J0456; J0696; J7050